=== PATIENT | female | born 1990 | race Caucasian/White ===

== ENCOUNTER → 2016-08-08 | Outpatient (CLI) | payer OTHER ==
[~2016-08-08] MED LIST: APRITAB PO; VALA500T PO
--- NOTE | 2016-08-08 15:24 | REP ---
SINUSES: HISTORY: Acute sinusitis. Mucosal thickening is present in the maxillary sinuses. The remaining sinuses are clear. There are no air-fluid levels. There is no fracture or bone lesion. IMPRESSION: Bilateral maxillary sinus mucosal thickening. Signed by Dontae Barahona MD 08/08/2016 03:58 P
== END ==
LOC: M WUC 11:00
PROVIDERS: ATTEND Physician Assistant
DX: J01.01 Acute recurrent maxillary sinusitis (principal)

== ENCOUNTER → 2016-09-17 | Outpatient (CLI) | payer OTHER ==
[2016-09-17 17:56] LABS: BASO % 0.5 % (0.0-1.0); EOS # 0.1 K/mm3 (0.0-0.50); EOS % 1.1 % (0.0-3.0); LARGE UNSTAINED CELL # 0.1 K/mm3 (0.0-0.4); LARGE UNSTAINED CELL % 1.1 % (0.0-4.0); LYMPH # 2.6 K/mm3 (1.5-6.5); LYMPH % 32.5 % (24.0-44.0); MEAN CORPUSCULAR HEMOGLOBIN 29.4 pg (27.0-33.0); MEAN CORPUSCULAR HGB CONC 34.6 g/dl (32.0-36.5); MEAN CORPUSCULAR VOLUME 84.9 fl (80.0-96.0); MONO # 0.3 K/mm3 (0.0-0.8); MONO % 3.7 % (0.0-5.0); NEUTROPHILS # 4.9 K/mm3 (1.8-7.7); PLATELET COUNT, AUTOMATED 340 k/mm3 (150-450); RED CELL DISTRIBUTION WIDTH 13.2 % (11.5-14.5)
[2016-09-23 14:14] LABS: STREP PNEUMO TYPE 12F <0.3 ug/mL (>1.3); STREP PNEUMO TYPE 18C <0.3 ug/mL (>1.3); STREP PNEUMO TYPE 19A 0.9 ug/mL (>1.3); STREP PNEUMO TYPE 23F <0.3 ug/mL (>1.3); STREP PNEUMO TYPE 6B <0.3 ug/mL (>1.3); STREP PNEUMO TYPE 7F <0.3 ug/mL (>1.3); STREP PNEUMO TYPE 9N <0.3 ug/mL (>1.3); STREP PNEUMO TYPE 9V <0.3 ug/mL (>1.3)
== END ==
LOC: M SMT 13:14
PROVIDERS: ATTEND Allergy & Immunology Allergy
DX: D84.9 Immunodeficiency, unspecified (principal)

== ENCOUNTER → 2016-11-18 | Outpatient (CLI) | payer OTHER ==
[~2016-11-18] MED LIST changes: -VALA500T PO; +VALA500T2 PO
[2016-11-25 00:07] LABS: STREP PNEUMO TYPE 12F 2.6 ug/mL (>1.3); STREP PNEUMO TYPE 18C 1.5 ug/mL (>1.3); STREP PNEUMO TYPE 19A 9.3 ug/mL (>1.3); STREP PNEUMO TYPE 19F >34.9 ug/mL (>1.3); STREP PNEUMO TYPE 23F 0.8 ug/mL (>1.3); STREP PNEUMO TYPE 6B 33.5 ug/mL (>1.3); STREP PNEUMO TYPE 7F 8.6 ug/mL (>1.3); STREP PNEUMO TYPE 9N 7.7 ug/mL (>1.3); STREP PNEUMO TYPE 9V >24.3 ug/mL (>1.3)
== END ==
LOC: M SMT 13:29
PROVIDERS: ATTEND Nurse Practitioner Family
DX: J32.9 Chronic sinusitis, unspecified (principal)

== ENCOUNTER 2017-09-29 10:49 | Emergency (ER) | payer OTHER ==
[2017-09-29 12:15] LABS: BASO % 0.5 % (0.0-1.0); EOS # 0.1 10^3/uL (0.0-0.50); EOS % 1.2 % (0.0-3.0); HEMATOCRIT 40.2 % (36.0-47.0); HEMOGLOBIN 13.8 g/dl (12.0-15.5); IMMATURE GRANULOCYTE % 0.2 % (0-3.0); LYMPH # 3.3 10^3/uL (1.5-6.5); LYMPH % 38.9 % (24.0-44.0); MEAN CORPUSCULAR HEMOGLOBIN 27.4 pg (27.0-33.0); MEAN CORPUSCULAR HGB CONC 34.3 g/dl (32.0-36.5); MEAN CORPUSCULAR VOLUME 79.8 fl (80.0-96.0); MONO # 0.4 10^3/uL (0.0-0.8); MONO % 4.7 % (0.0-5.0); NEUTROPHILS # 4.6 10^3/uL (1.8-7.7); NEUTROPHILS % 54.5 % (36.0-66.0); PLATELET COUNT, AUTOMATED 306 10^3/uL (150-450); RED BLOOD COUNT 5.04 10^6/uL (4.00-5.40); WHITE BLOOD COUNT 8.4 10^3/uL (4.0-10.0)
[2017-09-29 13:01] LABS: ANION GAP 10 MEQ/L (8-16); BLOOD UREA NITROGEN 14 MG/DL (7-18); CARBON DIOXIDE LEVEL 22 MEQ/L (21-32); CHLORIDE LEVEL 107 MEQ/L (98-107); CREATININE FOR GFR 0.82 MG/DL (0.55-1.30); FREE T4 0.89 NG/DL (0.76-1.46); GLOMERULAR FILTRATION RATE > 60.0 (>60); GLUCOSE, FASTING 103 MG/DL (70-100); MAGNESIUM LEVEL 2.3 MG/DL (1.8-2.4); POTASSIUM SERUM 4.2 MEQ/L (3.5-5.1); SODIUM LEVEL 139 MEQ/L (136-145)
== END 2017-09-29 16:37 | disposition home or self-care (01) ==
LOC: M ED 10:49
DX: G51.0 Bell's palsy (principal); M54.9 Dorsalgia, unspecified; F17.210 Nicotine dependence, cigarettes, uncomplicated; Z88.2 Allergy status to sulfonamides
CPT/HCPCS: 70551

== ENCOUNTER → 2017-10-05 | Outpatient (REF) | payer OTHER ==
[2017-10-08 00:07] LABS: Lyme Disease IgG/IgM Antibodie <0.91 ISR (0.00-0.90); Lyme Disease IgM Ab Quantitati <0.80 index (0.00-0.79)
== END ==
LOC: M LAB REF 17:28
DX: Z11.59 Encounter for screening for other viral diseases (principal)

== ENCOUNTER → 2018-03-06 | Outpatient (REF) | payer OTHER | LOC: M LAB REF 13:35 | DX: J02.9 Acute pharyngitis, unspecified (principal) ==

== ENCOUNTER → 2018-07-04 | Outpatient (CLI) | payer OTHER ==
[~2018-07-04] MED LIST changes: +ACYC200C8 PO; +DULO1CAP2 PO; +GABA600T4 PO; +IBUP-1022 PO; +PRED20TA PO; -VALA500T2 PO; +VALA500T5 PO
[2018-07-04 14:00] LABS: BASO % 0.6 % (0.0-1.0); EOS # 0.1 10^3/uL (0.0-0.50); HEMATOCRIT 42.3 % (36.0-47.0); LYMPH # 3.3 10^3/uL (1.5-6.5); LYMPH % 46.8 % (24.0-44.0); MEAN CORPUSCULAR HEMOGLOBIN 27.7 pg (27.0-33.0); MEAN CORPUSCULAR HGB CONC 33.1 g/dl (32.0-36.5); MEAN CORPUSCULAR VOLUME 83.6 fl (80.0-96.0); MONO # 0.5 10^3/uL (0.0-0.8); MONO % 6.5 % (0.0-5.0); NEUTROPHILS # 3.1 10^3/uL (1.8-7.7); NEUTROPHILS % 43.8 % (36.0-66.0); PLATELET COUNT, AUTOMATED 318 10^3/uL (150-450); RED BLOOD COUNT 5.06 10^6/uL (4.00-5.40); WHITE BLOOD COUNT 7.1 10^3/uL (4.0-10.0)
[2018-07-04 14:23] LABS: HEMOGLOBIN A1c 5.8 %
[2018-07-04 14:28] LABS: ALBUMIN 3.5 GM/DL (3.2-5.2); ALT/SGPT 39 U/L (12-78); BILIRUBIN,TOTAL 0.4 MG/DL (0.2-1.0); BLOOD UREA NITROGEN 13 MG/DL (7-18); CARBON DIOXIDE LEVEL 25 MEQ/L (21-32); CHLORIDE LEVEL 107 MEQ/L (98-107); CHOLESTEROL LEVEL 183 MG/DL (<200); CHOLESTEROL RISK RATIO 3.812 (<5); CREATININE FOR GFR 0.76 MG/DL (0.55-1.30); FREE T4 1.08 NG/DL (0.76-1.46); GLOMERULAR FILTRATION RATE > 60.0 (>60); GLUCOSE, FASTING 105 MG/DL (70-100); HDL CHOLESTEROL 48 MG/DL (>40); LDL CHOLESTEROL 104 MG/DL (<100); NON-HDL-C 135 MG/DL; POTASSIUM SERUM 4.1 MEQ/L (3.5-5.1); SODIUM LEVEL 141 MEQ/L (136-145); TOTAL PROTEIN 7.2 GM/DL (6.4-8.2); TRIGLYCERIDES LEVEL 154 MG/DL (<150)
== END ==
LOC: M SMT 08:50
PROVIDERS: ATTEND Physician Assistant
DX: Z13.29 Encounter for screening for other suspected endocrine disorder (principal)

== ENCOUNTER → 2019-01-16 | Outpatient (REF) | payer OTHER ==
[~2019-01-16] MED LIST changes: -DULO1CAP2 PO; +DULO1CAP5 PO
== END ==
LOC: M LAB REF 16:54
PROVIDERS: ATTEND Family Medicine
DX: L02.214 Cutaneous abscess of groin (principal)

== ENCOUNTER → 2019-05-01 | Outpatient (REF) | payer OTHER | LOC: M LAB REF 15:03 | PROVIDERS: ATTEND Physician Assistant | DX: J02.9 Acute pharyngitis, unspecified (principal) ==

== ENCOUNTER 2019-12-07 08:45 | Emergency (ER) | payer OTHER ==
[~2019-12-07] VITALS: Ht 165.1 cm; Wt 128.0 kg
[2019-12-07 08:45] VITALS: BP 140/85
[2019-12-07] MEDS ORDERED: HYDR-4571 PO (08:58)
[2019-12-07] MEDS ORDERED: SING4CHW9 PO (08:58)
[2019-12-07] MEDS ORDERED: TIZA2TA PO (08:58)
[2019-12-07] MEDS ORDERED: KETO10TAB (08:58)
[2019-12-07] MEDS ORDERED: KETOROLAC 30 MG/ML 1ML VIAL IV ONE (09:30)
[2019-12-07] MEDS ORDERED: MORPHINE 4 MG/ML 1ML VIAL/SYRINGE (J2270) IV ONE (10:45)
--- NOTE | 2019-12-07 11:22 | REPVR ---
PROCEDURE INFORMATION: Exam: CT Lumbar Spine Without Contrast Exam date and time: 12/07/2019 10:37 AM Age: 29 years old Clinical indication: Low back pain; Additional info: Severe back pain, right lumbar radiculopathy TECHNIQUE: Imaging protocol: Computed tomography images of the lumbar spine without contrast. Radiation optimization: All CT scans at this facility use at least one of these dose optimization techniques: automated exposure control; mA and/or kV adjustment per patient size (includes targeted exams where dose is matched to clinical indication); or iterative reconstruction. COMPARISON: No relevant prior studies available. FINDINGS: Vertebrae: Anatomic alignment. No acute fracture seen. Focal, sclerotic lesion in the L4 spinous process may represent a bone island. [id number] disc height loss and spondylosis at L5-S1. There are small lower thoracic and upper lumbar endplate Schmorl's nodes. L1-L2: No significant disc protrusion. No severe spinal canal stenosis. No significant neural foraminal narrowing. L2-L3: No significant disc protrusion. No spinal canal stenosis. No neural foraminal narrowing. L3-L4: No significant disc protrusion. No severe spinal canal stenosis. No significant neural foraminal narrowing. L4-L5: Mild facet arthropathy. No stenoses. L5-S1: Qmpf-ls-ciruuhmt diffuse disc osteophyte complex and facet arthropathy. A caudally migrating right lateral canal disc extrusion estimated to measure approximately 5 mm in AP dimension, this appears to be abutting and posteriorly displacing the right S1 nerve root. Dejr-sq-attiatew left and mild right neural foraminal stenoses. Soft tissues: Unremarkable. IMPRESSION: Right lateral canal disc extrusion at L5-S1 may be cause of right S1 distribution radiculopathy. Electronically signed by: Leah Amato On 12/07/2019 11:22:36 AM
[2019-12-07] MEDS ORDERED: HYDROMORPHONE HCL 0.5 MG/ 0.5 ML SYRINGE (J1170 PER 1) IV PRN (12:45)
== END 2019-12-07 14:26 | disposition home or self-care (01) ==
LOC: M ED 08:45
DX: M51.26 Other intervertebral disc displacement, lumbar region (principal); Z79.52 Long term (current) use of systemic steroids; Z79.899 Other long term (current) drug therapy; Z88.1 Allergy status to other antibiotic agents
CPT/HCPCS: 72131; 84702; 96374; 96375; 99283; J1170; J1885; J2270

== ENCOUNTER → 2020-10-07 | Outpatient (CLI) | payer OTHER ==
[~2020-10-07] MED LIST changes: +HYDR-4571 PO; +KETO10TAB; +SING4CHW9 PO; +TIZA2TA PO
--- NOTE | 2020-10-07 14:48 | REP ---
INDICATION: ACHILLES TENDINITIS COMPARISON: None. TECHNIQUE: AP, lateral, bilateral oblique views. FINDINGS: No acute fracture or dislocation. Skeletal structures and joint spaces are intact and normal. Ankle mortise appears stable. No subcutaneous emphysema or radiodense foreign body. IMPRESSION: Normal age-appropriate right ankle radiograph series. <Electronically signed by Rigoberto Knott > 10/07/20 2227
== END ==
LOC: M WUC 14:20
PROVIDERS: ATTEND Physician Assistant
DX: M76.61 Achilles tendinitis, right leg (principal)

== ENCOUNTER → 2021-05-21 | Outpatient (CLI) | payer OTHER | LOC: M RAD 17:16 | PROVIDERS: ATTEND Family Medicine | DX: J20.9 Acute bronchitis, unspecified (principal) ==

== ENCOUNTER → 2022-05-08 | Outpatient (REF) | payer OTHER ==
[2022-05-08 11:03] LABS: BASO % 0.4 % (0.0-1.0); EOS # 0.2 10^3/uL (0.0-0.5); EOS % 1.9 % (0.0-3.0); HEMATOCRIT 42.5 % (36.0-47.0); HEMOGLOBIN 14.1 g/dl (12.0-15.5); LYMPH # 3.2 10^3/uL (1.5-5.0); LYMPH % 33.7 % (24.0-44.0); MEAN CORPUSCULAR HEMOGLOBIN 28.4 pg (27.0-33.0); MEAN CORPUSCULAR HGB CONC 33.2 g/dl (32.0-36.5); MEAN CORPUSCULAR VOLUME 85.7 fl (80.0-96.0); MONO # 0.6 10^3/uL (0.0-0.8); NEUTROPHILS # 5.4 10^3/uL (1.5-8.5); NEUTROPHILS % 57.6 % (36.0-66.0); PLATELET COUNT, AUTOMATED 313 10^3/uL (150-450); RED BLOOD COUNT 4.96 10^6/uL (4.00-5.40); WHITE BLOOD COUNT 9.4 10^3/uL (4.0-10.0)
[2022-05-08 11:16] LABS: HEMOGLOBIN A1c 5.1 % (4.0-6.0)
[2022-05-08 11:37] LABS: ALBUMIN 3.9 G/DL (3.2-5.2); ALKALINE PHOSPHATASE 75 U/L (46-116); ALT/SGPT 28 U/L (7.0-40); AST/SGOT 19 U/L (<34); BILIRUBIN,TOTAL 0.3 MG/DL (0.3-1.2); BLOOD UREA NITROGEN 13 MG/DL (9-23); CARBON DIOXIDE LEVEL 27 MMOL/L (20-31); CHLORIDE LEVEL 102 MMOL/L (98-107); CREATININE FOR GFR 0.66 MG/DL (0.55-1.30); FOLATE > 24.0 NG/ML (>5.4); GLOMERULAR FILTRATION RATE > 60.0 (>60); GLUCOSE, FASTING 91 MG/DL (60-100); POTASSIUM SERUM 4.4 MMOL/L (3.5-5.1); SODIUM LEVEL 137 MMOL/L (136-145); THYROID STIMULATING HORMONE 2.013 uIU/ML (0.55-4.78); TOTAL 25(OH) VITAMIN D 30.6 NG/ML (20.0-100.0); TOTAL PROTEIN 7.2 G/DL (5.7-8.2)
[2022-05-08 11:38] LABS: FREE T4 0.94 NG/DL (0.89-1.76); VITAMIN B12 LEVEL 510 PG/ML (211-911)
== END ==
LOC: M PLALAB 10:04
PROVIDERS: ATTEND Physician Assistant
DX: Z13.29 Encounter for screening for other suspected endocrine disorder (principal); E55.9 Vitamin D deficiency, unspecified; Z79.899 Other long term (current) drug therapy

== ENCOUNTER → 2022-05-21 | Outpatient (CLI) | payer OTHER ==
[2022-05-21 17:40] LABS: BASO % 0.3 % (0.0-1.0); EOS # 0.1 10^3/uL (0.0-0.5); HEMATOCRIT 41.6 % (36.0-47.0); HEMOGLOBIN 13.8 g/dl (12.0-15.5); LYMPH # 4.9 10^3/uL (1.5-5.0); LYMPH % 36.7 % (24.0-44.0); MEAN CORPUSCULAR HEMOGLOBIN 28.5 pg (27.0-33.0); MEAN CORPUSCULAR HGB CONC 33.2 g/dl (32.0-36.5); MONO # 0.7 10^3/uL (0.0-0.8); MONO % 5.1 % (2.0-8.0); NEUTROPHILS # 7.5 10^3/uL (1.5-8.5); NEUTROPHILS % 56.6 % (36.0-66.0); PLATELET COUNT, AUTOMATED 374 10^3/uL (150-450); RED BLOOD COUNT 4.84 10^6/uL (4.00-5.40); WHITE BLOOD COUNT 13.2 10^3/uL (4.0-10.0)
[2022-05-21 17:55] LABS: ERYTHROCYTE SEDIMENTATION RATE 28 mm/hr (0-20)
[2022-05-21 18:13] LABS: ALKALINE PHOSPHATASE 78 U/L (46-116); ALT/SGPT 27 U/L (7.0-40); AST/SGOT 19 U/L (<34); BILIRUBIN,TOTAL 0.3 MG/DL (0.3-1.2); BLOOD UREA NITROGEN 13 MG/DL (9-23); CALCIUM LEVEL 9.6 MG/DL (8.5-10.1); CARBON DIOXIDE LEVEL 27 MMOL/L (20-31); CHLORIDE LEVEL 107 MMOL/L (98-107); CREATININE FOR GFR 0.74 MG/DL (0.55-1.30); GLOMERULAR FILTRATION RATE > 60.0 (>60); GLUCOSE, FASTING 91 MG/DL (60-100); POTASSIUM SERUM 3.6 MMOL/L (3.5-5.1); SODIUM LEVEL 138 MMOL/L (136-145); TOTAL PROTEIN 7.3 G/DL (5.7-8.2)
[2022-05-21 18:14] LABS: COMPLEMENT C3 160.9 MG/DL (84.0-160.0); COMPLEMENT C4 34.3 MG/DL (12-36); RHEUMATOID FACTOR QUANT 4.2 IU/ML (<14)
[2022-05-21 18:15] LABS: THYROID STIMULATING HORMONE 1.386 uIU/ML (0.55-4.78); THYROXINE (T4) 10.4 UG/DL (4.5-10.9)
[2022-05-21 18:18] LABS: THYROID PEROXIDASE ANTIBODY 39 U/ML (<60.0)
[2022-05-21 18:40] LABS: IMMUNOGLOBULIN E 16.1 IU/ML (0-378)
[2022-06-02 04:07] LABS: ANTINUCLEAR ANTIBODIES DIRECT Negative (Negative); C1 ESTER INHIB. NON FUNCTIONAL 31 mg/dL (21-39); C1 ESTERASE INHIB. FUNCTIONAL 90 (.); COMPLEMENT TOTAL (CH50) > 60 U/mL (>41); THRYOGLOBULIN ANTIBODIES (ATA) < 1.0 IU/mL (0.0-0.9); THYROGLOBULIN QUANTITATIVE 13.8 ng/mL (1.5-38.5)
== END ==
LOC: M PLALAB 15:32
PROVIDERS: ATTEND Allergy & Immunology Allergy
DX: T78.3XXA Angioneurotic edema, initial encounter (principal); R53.82 Chronic fatigue, unspecified; R51.9 Headache, unspecified; M79.18 Myalgia, other site; R50.9 Fever, unspecified

== ENCOUNTER → 2022-05-25 | Outpatient (CLI) | payer OTHER | LOC: M PLALAB 13:13 | PROVIDERS: ATTEND Family Medicine | DX: T78.3XXA Angioneurotic edema, initial encounter (principal) ==

== ENCOUNTER → 2022-07-13 | Outpatient (CLI) | payer OTHER ==
[~2022-07-13] MED LIST changes: +MONT4TAB2 PO; -SING4CHW9 PO
[2022-07-13 19:48] LABS: FREE T4 0.97 NG/DL (0.89-1.76); THYROID STIMULATING HORMONE 1.683 uIU/ML (0.55-4.78)
[2022-07-13 19:50] LABS: FOLLICLE STIMULATING HORMONE 2.3 mIU/ML
[2022-07-13 19:51] LABS: LUTEINIZING HORMONE 1.6 mIU/ML
[2022-07-13 19:52] LABS: PROLACTIN 6.28 NG/ML
[2022-07-13 19:55] LABS: PROGESTERONE 3.68 NG/ML
[2022-07-15 18:09] LABS: TESTOSTERONE FREE (DIRECT) 2.1 pg/mL (0.0-4.2)
== END ==
LOC: M PLALAB 12:34
PROVIDERS: ATTEND Specialist
DX: Z01.419 Encounter for gynecological examination (general) (routine) without abnormal findings (principal); N92.6 Irregular menstruation, unspecified
CPT/HCPCS: 36415; 83001; 83002; 84144; 84146; 84402; 84403; 84439; 84443; 87624; G0123

== ENCOUNTER 2023-02-21 05:13 | Emergency (ER) | payer OTHER ==
[2023-02-21 05:15] VITALS: BP 170/115; TEMP 97.9; O2SAT 97
[2023-02-21] MEDS ORDERED: NORT10CA2 (05:24)
== END 2023-02-21 05:43 | disposition left against medical advice (07) ==
LOC: M ED 05:13
DX: Z53.21 Procedure and treatment not carried out due to patient leaving prior to being seen by health care provider (principal)

== ENCOUNTER → 2023-04-16 | Outpatient (CLI) | payer OTHER ==
[~2023-04-16] MED LIST changes: +NORT10CA2
[2023-04-16 14:51] LABS: BASO # 0.1 10^3/uL (0.0-0.2); BASO % 0.6 % (0.0-1.0); EOS # 0.2 10^3/uL (0.0-0.5); EOS % 2.2 % (0.0-3.0); HEMATOCRIT 41.8 % (36.0-47.0); LYMPH # 3.2 10^3/uL (1.5-5.0); MEAN CORPUSCULAR HEMOGLOBIN 28.7 pg (27.0-33.0); MEAN CORPUSCULAR HGB CONC 33.5 g/dl (32.0-36.5); MEAN CORPUSCULAR VOLUME 85.8 fl (80.0-96.0); MONO # 0.5 10^3/uL (0.0-0.8); MONO % 5.8 % (2.0-8.0); NEUTROPHILS # 4.4 10^3/uL (1.5-8.5); NEUTROPHILS % 53.2 % (36.0-66.0); PLATELET COUNT, AUTOMATED 354 10^3/uL (150-450); RED BLOOD COUNT 4.87 10^6/uL (4.00-5.40); WHITE BLOOD COUNT 8.3 10^3/uL (4.0-10.0)
[2023-04-16 15:16] LABS: ERYTHROCYTE SEDIMENTATION RATE 32 mm/hr (0-20)
[2023-04-16 15:17] LABS: URIC ACID 4.8 MG/DL (3.1-7.8)
[2023-04-16 15:20] LABS: RHEUMATOID FACTOR QUANT < 3.5 IU/ML (<14); THYROID STIMULATING HORMONE 1.011 uIU/ML (0.55-4.78)
[2023-04-16 15:21] LABS: ALBUMIN 4.2 G/DL (3.2-5.2); ALKALINE PHOSPHATASE 71 U/L (46-116); ALT/SGPT 39 U/L (7.0-40); AST/SGOT 21 U/L (<34); BILIRUBIN,TOTAL 0.5 MG/DL (0.3-1.2); BLOOD UREA NITROGEN 14 MG/DL (9-23); CALCIUM LEVEL 9.3 MG/DL (8.5-10.1); CARBON DIOXIDE LEVEL 27 MMOL/L (20-31); CHLORIDE LEVEL 106 MMOL/L (98-107); CPK CREATINE PHOSPHOKINASE 278 U/L (34-145); CREATININE FOR GFR 0.74 MG/DL (0.55-1.30); FREE T4 1.04 NG/DL (0.89-1.76); GLOMERULAR FILTRATION RATE > 60.0 (>60); GLUCOSE, FASTING 92 MG/DL (60-100); POTASSIUM SERUM 4.2 MMOL/L (3.5-5.1); SODIUM LEVEL 138 MMOL/L (136-145); TOTAL PROTEIN 7.5 G/DL (5.7-8.2)
[2023-04-16 15:23] LABS: HEMOGLOBIN A1c 5.4 % (4.0-6.0)
[2023-04-16 15:31] LABS: HCG, SERUM QUALITATIVE NEGATIVE (NEGATIVE)
== END ==
LOC: M LABDRWAD 09:18
PROVIDERS: ATTEND Physician Assistant
DX: R53.83 Other fatigue (principal); J32.9 Chronic sinusitis, unspecified

== ENCOUNTER → 2023-05-20 | Outpatient (CLI) | payer OTHER | LOC: M WUC 10:44 | PROVIDERS: ATTEND Nurse Practitioner Family | DX: R06.02 Shortness of breath (principal) ==

== ENCOUNTER → 2023-06-15 | Outpatient (REF) | payer OTHER | LOC: M SFHCWAGY 09:49 | PROVIDERS: ATTEND Nurse Practitioner Family | DX: R59.0 Localized enlarged lymph nodes (principal) ==

== ENCOUNTER 2023-07-07 11:28 | Day surgery (SDC) | payer OTHER ==
[~2023-07-07] VITALS: Ht 165.1 cm; Wt 125.6 kg
[~2023-07-07 11:28] MED LIST changes: +ALBU8.5H; +AZEL1SPR3; +BUDE0.254; +HYDR-3363 PO; +LIDOCAINE 2% 100MG/5ML SDV (FOR ANES.) As Ordered ONE; +MULTTAB20 PO; -NORT10CA2; +NORT10CA2 PO; +PIND25TA PO; +RIZA10TA58 PO; +fentaNYL 100 MCG/2 ML INJECTION As Ordered ONE; +propofoL 500 MG/50 ML VIAL As Ordered ONE
[2023-07-07] MEDS: NS 1,000 ML IV ONE (11:54)
[2023-07-07] MEDS ORDERED: ONDANSETRON 4MG 2ML VIAL As Ordered ONE (13:01)
[2023-07-07 13:54] VITALS: BP 132/55; TEMP 97; O2SAT 98
== END 2023-07-07 13:57 | disposition home or self-care (01) ==
LOC: M OPP 11:28
PROVIDERS: ATTEND Internal Medicine Gastroenterology
DX: K64.0 First degree hemorrhoids (principal); K62.89 Other specified diseases of anus and rectum; K52.9 Noninfective gastroenteritis and colitis, unspecified; K62.5 Hemorrhage of anus and rectum; K31.89 Other diseases of stomach and duodenum; R12 Heartburn; Z79.1 Long term (current) use of non-steroidal anti-inflammatories (NSAID); Z79.51 Long term (current) use of inhaled steroids; Z79.899 Other long term (current) drug therapy; Z88.2 Allergy status to sulfonamides; Z91.048 Other nonmedicinal substance allergy status
CPT/HCPCS: 43239; 45380; 88305; J2405; J3010

== ENCOUNTER → 2023-07-13 | Outpatient (CLI) | payer OTHER ==
[~2023-07-13] MED LIST changes: -LIDOCAINE 2% 100MG/5ML SDV (FOR ANES.) As Ordered ONE; -fentaNYL 100 MCG/2 ML INJECTION As Ordered ONE; -propofoL 500 MG/50 ML VIAL As Ordered ONE
== END ==
LOC: M PLALAB 09:49
PROVIDERS: ATTEND Allergy & Immunology Allergy
DX: Q82.2 Congenital cutaneous mastocytosis (principal); T78.3XXD Angioneurotic edema, subsequent encounter; J30.89 Other allergic rhinitis; J45.20 Mild intermittent asthma, uncomplicated; E55.9 Vitamin D deficiency, unspecified

== ENCOUNTER → 2023-08-11 | Outpatient (REF) | payer OTHER | LOC: M SFHCWAGY 15:03 | PROVIDERS: ATTEND Nurse Practitioner Family | DX: N73.9 Female pelvic inflammatory disease, unspecified (principal) ==

== ENCOUNTER → 2024-11-30 | Outpatient (CLI) | payer OTHER ==
[~2024-11-30] MED LIST changes: +GABA-1490 PO; -GABA600T4 PO; +ISOVUE-370 76% 100 ML VIAL As Ordered ONE; -PIND25TA PO; +PIND5TAB2 PO
== END ==
LOC: M RADPRO 11:34
PROVIDERS: ATTEND Obstetrics & Gynecology
DX: N97.9 Female infertility, unspecified (principal)
CPT/HCPCS: 58340; 74740; Q9967